=== PATIENT | male | born 1985 | race Caucasian/White ===

== ENCOUNTER 2020-03-14 18:01 | Emergency (ER) | payer OTHER, SELFPAY ==
[~2020-03-14] VITALS: Ht 185.4 cm; Wt 115.2 kg
[2020-03-14 18:28] VITALS: BP 121/78
--- NOTE | 2020-03-14 18:28 | NUR ---
34 Y/O MALE TESTED + 10 DAYS AGO. C/O SOB, WHEEZING AT NIGHT, +DRY NON-PRODUCTIVE COUGH, FATIGUE, HEADACHE, FEVER/CHILLS, N/V, AND CONGESTION. C/O 810 PAIN. PT AOX4, BREATHING EVEN AND UNLABORED, SKIN WARM AND DRY. 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
--- NOTE | 2020-03-14 19:32 | NUR ---
PATIENT CALLED BACK FROM [facility]ENT TO GET XRAY. PER CUTTING TABLE OPERATOR FIRST PATIENT NO LONGER IN TENT.
--- NOTE | 2020-03-14 20:17 | NUR ---
PATIENT TAKEN TO XRAY.
--- NOTE | 2020-03-14 20:35 | NUR ---
ERMD ASSESSING PATIENT IN TENT
[2020-03-14 20:45] VITALS: BP 122/82
--- NOTE | 2020-03-14 20:45 | NUR ---
Patient discharged with v/s stable. Written and verbal after care instructions given and explained. Patient alert, oriented and verbalized understanding of instructions. Ambulatory with steady gait. All questions addressed prior to discharge. ID band removed. Patient advised to follow up with PMD. Rx of TESSALON, ZOFRAN, PREDNISONE given. Patient educated on indication of medication including possible reaction and side effects. Opportunity to ask questions provided and answered.
== END 2020-03-14 20:45 | disposition home or self-care (01) ==
LOC: MED 18:01
DX: U07.1 COVID-19 (principal)
CPT/HCPCS: 71045; 99283

== ENCOUNTER 2020-04-03 12:39 | Emergency (ER) | payer OTHER, SELFPAY ==
[~2020-04-03] VITALS: Ht 185.4 cm; Wt 111.1 kg
--- NOTE | 2020-04-03 13:01 | NUR ---
Patient ambulated to bed 9. RN evaluating the patient at bedside.
[2020-04-03 13:02] VITALS: BP 167/111
--- NOTE | 2020-04-03 13:14 | NUR ---
34 y/o male from home c/o headache and cough since Mar 04. Pt states he was diagnosed with covid and pneumonia 03/04. Denies sob. Skin warm,dry,intact. Finished antibiotics yesterday. States he took 800mg Ibuprofen with no relief. Awake and alert. VSS
--- NOTE | 2020-04-03 13:18 | NUR ---
MITZY Vines at bedside examining patient.
[2020-04-03] MEDS: KETOROLAC 30 MG/ML VIAL IM ONE (13:48)
--- NOTE | 2020-04-03 13:51 | NUR ---
PT TAKEN TO CT VIA WHEELCHAIR
--- NOTE | 2020-04-03 13:57 | NUR ---
PT RETURNED FROM CT VIA WHEELCHAIR
[2020-04-03 15:07] VITALS: BP 167/111
== END 2020-04-03 15:07 | disposition home or self-care (01) ==
LOC: MED 12:39
DX: R51.9 Headache, unspecified (principal); R53.83 Other fatigue; R03.0 Elevated blood-pressure reading, without diagnosis of hypertension; Z20.828 Contact with and (suspected) exposure to other viral communicable diseases; J45.909 Unspecified asthma, uncomplicated
CPT/HCPCS: 70450; 96372; 99284; J1885